=== PATIENT | female | born 1980 | race Caucasian/White ===

== ENCOUNTER 2025-03-19 19:27 | Inpatient (IN) | payer OTHER ==
[~2025-03-19] VITALS: Ht 165.1 cm; Wt 80.1 kg
[2025-03-19 20:21] LABS: BASOPHILS ABSOLUTE AUTO 0.22 K/mm3 (0.00-0.23); BASOPHILS PERCENT AUTO 1 % (0-2); EOSINOPHILS ABSOLUTE AUTO 0.29 K/mm3 (0.00-0.68); EOSINOPHILS PERCENT AUTO 2 % (0-6); Hematocrit 31.6 % (33.0-51.0); Hemoglobin 10.9 g/dL (11.5-16.0); IMMATURE GRAN ABSOLUTE AUTO 0.13 K/mm3 (0.00-0.10); IMMATURE GRAN PERCENT AUTO 1 % (0-1); LYMPHOCYTES ABSOLUTE AUTO 1.95 K/mm3 (0.84-5.20); LYMPHOCYTES PERCENT AUTO 12 % (21-46); MONOCYTES ABSOLUTE AUTO 1.48 K/mm3 (0.16-1.47); MONOCYTES PERCENT AUTO 9 % (4-13); Mean Corpuscular HGB 33.6 pg (26.0-34.0); Mean Corpuscular HGB Conc 34.5 g/dL (31.5-36.5); Mean Corpuscular Volume 98 fL (80-100); Mean Platelet Volume 10.8 fL (9.1-12.4); NEUTROPHILS ABSOLUTE AUTO 12.17 K/mm3 (1.96-9.15); NEUTROPHILS PERCENT AUTO 75 % (41-73); Platelet Count 385 K/mm3 (150-400); RDW Coefficient Variation 16.9 % (11.7-14.2); RDW Standard Deviation 59.2 fL (35.1-46.3); Red Blood Cell Count 3.24 M/mm3 (3.80-5.20); White Blood Cell Count 16.24 K/mm3 (4.00-11.30)
[2025-03-19 20:36] LABS: International Normalized Ratio 1.9; Prothrombin Time Results 19.4 Sec (9.7-11.5)
[2025-03-19 20:49] LABS: Alanine Aminotransfer (ALT/SGP 52 U/L (12-78); Albumin, Blood 2.2 g/dL (3.4-5.0); Albumin/Globulin Ratio 0.5 (0.8-1.8); Alk Phos 225 U/L (50-136); Anion Gap 11 mmol/L (3-11); Aspartate Aminotrans (AST/SGOT 196 U/L (12-37); Bilirubin, Total 14.2 mg/dL (0.1-1.0); Blood Urea Nitrogen 24 mg/dL (8-24); Bun/Creatinine Ratio 34.1 (12.0-20.0); CO2, Blood 19 mmol/L (21-32); Calcium, Blood 8.4 mg/dL (8.5-10.1); Chloride, Blood 109 mmol/L (98-108); Globulin, Blood 4.4 g/dL (2.2-4.0); Glomerular Filtration Rate 110 (60-); Glucose, Blood 115 mg/dL (70-99); Potassium, Blood 3.4 mmol/L (3.5-5.5); Sodium, Blood 136 mmol/L (136-145); Total Protein, Blood 6.6 g/dL (6.4-8.2)
[2025-03-19 22:59] LABS: Source, Urine Clean Catch
[2025-03-19 23:01] LABS: Blood, Urine 2+ (Neg); Glucose Qualitative, Urine Neg (Neg); Ketones, Urine Neg (Neg); Leukocyte Esterase, Urine 1+ (Neg); Nitrite, Urine Neg (Neg); Protein, Urine 3+ (Neg); Specific Gravity, Urine 1.015 (1.003-1.022); Urobilinogen, Urine 3+ (Normal); pH, Urine 6.5 (5.0-8.0)
[2025-03-19 23:03] LABS: Appearance, Urine Hazy (Clear); Bilirubin, Urine 3+ (Neg); Color, Urine Amber (P-Yellow)
[2025-03-19 23:09] LABS: Amorphous Light (0-Heavy); Bacteria Mod /hpf; Granular Casts 0-2 /lpf (0); Red Blood Cells, Urine 0-2 /hpf (0-2); Squamous Epithelial Cells Rare /hpf (Few); Transitional Epithelial Cells Few /hpf (0-Rare); WBC Cast 0-2 /lpf (0)
[2025-03-19 23:10] LABS: Other Crystals Few /hpf
[2025-03-19] MEDS ORDERED: Ampicillin Sod/Sulbactam Sod 3 GM in NS 100 ML IV ONE (23:30)
[2025-03-19] MEDS ORDERED: Ketorolac Tromethamine 30mg Vial IV ONE (23:30)
[2025-03-19] MEDS ORDERED: NS 1,000 ML IV SCH (23:35)
[2025-03-20] MEDS ORDERED: NS 1,000 ML IV SCH ×3 (01:05→08:00)
[2025-03-20] MEDS ORDERED: Ondansetron HCl 2 MG / ML 2ML Vial IV PRN ×2 (01:05→01:20)
[2025-03-20] MEDS ORDERED: Albumin (Human) 25gm/100ml 100 ML IV ONE (01:45)
[2025-03-20] MEDS ORDERED: Potassium Chloride 40 MEQ in NS 250 ML IV ONE (01:45)
[2025-03-20 02:08] LABS: Ethanol (Alcohol), Blood, Med <3 mg/dL
[2025-03-20] MEDS ORDERED: Thiamine HCl 100 MG in NS 50 ML IV SCH (02:17)
[2025-03-20 03:00] VITALS: BP 103/55
[2025-03-20] MEDS ORDERED: MethylPREDNISolone Sod Succ 40 MG VIAL IV SCH (03:00)
[2025-03-20] MEDS ORDERED: NS 250 ML IV PRN (03:35)
[2025-03-20 05:01] LABS: EOSINOPHILS ABSOLUTE AUTO 0.19 K/mm3 (0.00-0.68); EOSINOPHILS PERCENT AUTO 2 % (0-6); IMMATURE GRAN ABSOLUTE AUTO 0.07 K/mm3 (0.00-0.10); IMMATURE GRAN PERCENT AUTO 1 % (0-1); Red Blood Cell Count 2.55 M/mm3 (3.80-5.20)
[2025-03-20 05:06] LABS: BASOPHILS ABSOLUTE AUTO 0.16 K/mm3 (0.00-0.23); BASOPHILS PERCENT AUTO 2 % (0-2); Hematocrit 25.2 % (33.0-51.0); Hemoglobin 8.6 g/dL (11.5-16.0); LYMPHOCYTES ABSOLUTE AUTO 1.24 K/mm3 (0.84-5.20); LYMPHOCYTES PERCENT AUTO 12 % (21-46); MONOCYTES ABSOLUTE AUTO 1.02 K/mm3 (0.16-1.47); MONOCYTES PERCENT AUTO 10 % (4-13); Mean Corpuscular HGB 33.7 pg (26.0-34.0); Mean Corpuscular HGB Conc 34.1 g/dL (31.5-36.5); Mean Corpuscular Volume 99 fL (80-100); Mean Platelet Volume 11.2 fL (9.1-12.4); NEUTROPHILS ABSOLUTE AUTO 7.45 K/mm3 (1.96-9.15); NEUTROPHILS PERCENT AUTO 74 % (41-73); Platelet Count 274 K/mm3 (150-400); RDW Coefficient Variation 17.1 % (11.7-14.2); RDW Standard Deviation 61.1 fL (35.1-46.3); White Blood Cell Count 10.13 K/mm3 (4.00-11.30)
[2025-03-20 05:30] LABS: Albumin, Blood 2.4 g/dL (3.4-5.0); Albumin/Globulin Ratio 0.7 (0.8-1.8); Bilirubin, Total 12.4 mg/dL (0.1-1.0); Bun/Creatinine Ratio 34.9 (12.0-20.0); Creatinine, Blood 0.69 mg/dL (0.40-1.00); Globulin, Blood 3.5 g/dL (2.2-4.0); Potassium, Blood 3.2 mmol/L (3.5-5.5); Total Protein, Blood 5.9 g/dL (6.4-8.2)
--- NOTE | 2025-03-20 05:36 | NUR ---
44 Y/O FEMALE ADMITTED TO ROOM 364 FROM ED. PATIENT COMES IN WITH ABDOMINAL BLOATING. PATIENT IS JAUNDICED WITH ABD DISTENTION SHE STATES IS MORE THAN HER NORMAL. NPO, ON ROOM AIR. ABLE TO AMBULATE WITH MINAMAL ASSIST TO BATHROOM. URINE IS YELLOW. VOIDING IN FREQUENT SMALL AMOUNTS. NO COMPLAINTS OF PAIN. IVF INFUSING. TELE SR SKIN IS INTACT. ABLE TO MAKE NEEDS KNOWN. CONTINUE CARE
[2025-03-20] MEDS ORDERED: Ampicillin Sod/Sulbactam Sod 3 GM in NS 100 ML IV SCH (06:00)
[2025-03-20] MEDS ORDERED: MetroNIDAZOLE 500MG/NS 100 ml 100 ML IV SCH (08:09)
[2025-03-20 08:15] VITALS: BP 98/61
[2025-03-20] MEDS ORDERED: Acetaminophen 325 MG TABLET PO PRN (08:35)
[2025-03-20] MEDS ORDERED: OxyCODONE HCL 5 MG TAB PO PRN (08:40)
[2025-03-20] MEDS ORDERED: TraZODone HCl 50 MG Tab PO PRN (08:40)
[2025-03-20] MEDS ORDERED: CefTRIAXone Sodium 2,000 MG in NS 100 ML IV SCH (09:00)
[2025-03-20] MEDS ORDERED: Folic Acid 1 MG in NS 50 ML IV SCH (09:00)
[2025-03-20] MEDS ORDERED: Docusate Sodium/Senna 1 Tab PO SCH (09:00)
[2025-03-20] MEDS ORDERED: Famotidine 20 MG Tab PO SCH (09:00)
[2025-03-20] MEDS ORDERED: Polyethylene Glycol 3350 17 gm PO SCH (09:00)
[2025-03-20] MEDS ORDERED: Potassium Chloride 20 MEQ TabCR PO ONE (09:00)
[2025-03-20 12:03] VITALS: BP 99/59
[2025-03-20 16:47] VITALS: BP 96/67
[2025-03-20 20:10] VITALS: BP 105/62
[2025-03-21 00:05] VITALS: BP 121/64
--- NOTE | 2025-03-21 04:09 | NUR ---
SHIFT SUMMARY ADMITTED FOR HEPATITIS. FULL CODE. IV ANTIB RX ARE SCHEDULED. SHE HAS BEEN NPO FOR AN IMAGING STUDY TO BE PERFORMED TODAY. IV FLUIDS HAVE COMPLETED. TELEMETRY: NSR @ 79 BPM. ON RA. A&O X4. INDEPENDENT IN ROOM. HX OF CIRRHOSIS. DR. SWEENEY IS SURGICAL CONSULT. HX: ETOH - QUIT 1 MONTH AGO.
[2025-03-21 04:50] LABS: BASOPHILS ABSOLUTE AUTO 0.09 K/mm3 (0.00-0.23); BASOPHILS PERCENT AUTO 1 % (0-2); EOSINOPHILS ABSOLUTE AUTO 0.15 K/mm3 (0.00-0.68); EOSINOPHILS PERCENT AUTO 1 % (0-6); Hematocrit 25.6 % (33.0-51.0); Hemoglobin 8.9 g/dL (11.5-16.0); IMMATURE GRAN ABSOLUTE AUTO 0.14 K/mm3 (0.00-0.10); IMMATURE GRAN PERCENT AUTO 1 % (0-1); LYMPHOCYTES PERCENT AUTO 11 % (21-46); MONOCYTES ABSOLUTE AUTO 1.36 K/mm3 (0.16-1.47); MONOCYTES PERCENT AUTO 9 % (4-13); Mean Corpuscular HGB 34.2 pg (26.0-34.0); Mean Corpuscular HGB Conc 34.8 g/dL (31.5-36.5); Mean Corpuscular Volume 99 fL (80-100); Mean Platelet Volume 11.1 fL (9.1-12.4); NEUTROPHILS ABSOLUTE AUTO 11.55 K/mm3 (1.96-9.15); NEUTROPHILS PERCENT AUTO 78 % (41-73); Platelet Count 261 K/mm3 (150-400); RDW Coefficient Variation 16.7 % (11.7-14.2); RDW Standard Deviation 59.1 fL (35.1-46.3); White Blood Cell Count 14.89 K/mm3 (4.00-11.30)
[2025-03-21 04:52] VITALS: BP 104/68
[2025-03-21 05:17] LABS: Albumin, Blood 2.1 g/dL (3.4-5.0); Albumin/Globulin Ratio 0.6 (0.8-1.8); Bilirubin, Total 11.2 mg/dL (0.1-1.0); Bun/Creatinine Ratio 30.8 (12.0-20.0); Calcium, Blood 7.8 mg/dL (8.5-10.1); Creatinine, Blood 0.65 mg/dL (0.40-1.00); Globulin, Blood 3.8 g/dL (2.2-4.0); Magnesium, Blood 2.2 mg/dL (1.6-2.4); Potassium, Blood 3.7 mmol/L (3.5-5.5); Total Protein, Blood 5.9 g/dL (6.4-8.2)
[2025-03-21 07:33] VITALS: BP 99/63
--- NOTE | 2025-03-21 08:54 | NUR ---
0850- ORDER ACKNOWLEDGED FOR SWEENEY CONSULT. MD SWEENEY AWARE. MD SWEENEY HAD ALREADY ORDERED MRCP FOR TODAY.
[2025-03-21] MEDS ORDERED: Potassium Chloride 20 MEQ TabCR PO ONE (09:00)
[2025-03-21] MEDS ORDERED: Furosemide 10 MG/ML 4ML Vial IV ONE (09:00)
[2025-03-21 10:21] LABS: Bilirubin, Direct 9.8 mg/dL (0.0-0.3); Bilirubin, Indirect 2.6 mg/dL (0.1-0.7); Bilirubin, Total 12.4 mg/dL (0.1-1.0)
[2025-03-21 15:38] VITALS: BP 111/64
--- NOTE | 2025-03-21 18:26 | NUR ---
SUMMARY- PT AAOX4. NO COMPLAINTS OF PAIN THIS SHIFT. PT ON RA. INDIPENDENT IN ROOM. NO ACUTE EVENTS THIS SHIFT. PT IS PLEASANT AND COOPERTIVE. GOOD APPETITE AND TOLERATING CLEARS TONIGHT.
[2025-03-21 18:43] LABS: HEPATITIS A ANTIBODY, IGM Negative (Negative); HEPATITIS B CORE ANTIBODY, IGM Negative (Negative); HEPATITIS B SURFACE ANTIGEN Negative (Negative); HEPATITIS C AB CIA INTERP Negative (Negative); HEPATITIS C ANTIBODY CIA INDEX 0.31 IV
[2025-03-21 19:49] VITALS: BP 108/67
[2025-03-22 04:00] LABS: FACTIN SMOOTH MUSCLE,IGG ELISA 11 Units (0-19); MITOCHONDRIAL (M2) AB,IGG 7.8 Units (0.0-24.9)
[2025-03-22 04:26] VITALS: BP 112/60
[2025-03-22 04:55] LABS: BASOPHILS ABSOLUTE AUTO 0.12 K/mm3 (0.00-0.23); BASOPHILS PERCENT AUTO 1 % (0-2); EOSINOPHILS ABSOLUTE AUTO 0.29 K/mm3 (0.00-0.68); EOSINOPHILS PERCENT AUTO 3 % (0-6); Hematocrit 26.1 % (33.0-51.0); Hemoglobin 8.9 g/dL (11.5-16.0); IMMATURE GRAN ABSOLUTE AUTO 0.06 K/mm3 (0.00-0.10); IMMATURE GRAN PERCENT AUTO 1 % (0-1); LYMPHOCYTES ABSOLUTE AUTO 1.43 K/mm3 (0.84-5.20); LYMPHOCYTES PERCENT AUTO 14 % (21-46); MONOCYTES PERCENT AUTO 11 % (4-13); Mean Corpuscular HGB 33.3 pg (26.0-34.0); Mean Corpuscular HGB Conc 34.1 g/dL (31.5-36.5); Mean Corpuscular Volume 98 fL (80-100); NEUTROPHILS ABSOLUTE AUTO 7.24 K/mm3 (1.96-9.15); NEUTROPHILS PERCENT AUTO 71 % (41-73); Platelet Count 230 K/mm3 (150-400); RDW Coefficient Variation 16.6 % (11.7-14.2); RDW Standard Deviation 58.4 fL (35.1-46.3); Red Blood Cell Count 2.67 M/mm3 (3.80-5.20); White Blood Cell Count 10.24 K/mm3 (4.00-11.30)
--- NOTE | 2025-03-22 05:13 | NUR ---
SHIFT SUMMARY ADMITTED FOR HEPATITIS. FULL CODE. IV ANTIB RX ARE SCHEDULED. HIDA SCAN WAS CLEAR. SURGICAL CONSULT IS DR. SWEENEY. SHE IS A&O X4, INDEPENDENT, ON RA. HX: CIRRHOSIS, ETOH - QUIT 1 MONTH AGO.
[2025-03-22 05:21] LABS: Albumin, Blood 2.1 g/dL (3.4-5.0); Albumin/Globulin Ratio 0.6 (0.8-1.8); Bilirubin, Total 10.4 mg/dL (0.1-1.0); Calcium, Blood 7.9 mg/dL (8.5-10.1); Creatinine, Blood 0.52 mg/dL (0.40-1.00); Globulin, Blood 3.7 g/dL (2.2-4.0); Magnesium, Blood 1.7 mg/dL (1.6-2.4); Phosphorus, Blood 1.7 mg/dL (2.5-4.9); Potassium, Blood 3.5 mmol/L (3.5-5.5); Total Protein, Blood 5.8 g/dL (6.4-8.2)
[2025-03-22 07:35] VITALS: BP 116/60
--- NOTE | 2025-03-22 11:16 | NUR ---
RN NOTE MS ANGELES TOLERATED REGULAR DIET FOR BREAKFAST THIS MORNING. ABDOMEN IS SOFT AND NON TENDER. SHE IS JAUNDICED AND HAS BROWN URINE. UP INDEPENDENTLY TO THE BATHROOM WITH STEADY GAIT. SHE SAID FEELS READY TO GO HOME TODAY.
[2025-03-22] MEDS ORDERED: CEPH500 PO (12:30)
[2025-03-22] MEDS ORDERED: B-12500 MC2 PO (12:30)
[2025-03-22] MEDS ORDERED: FOLI1 PO (12:32)
[2025-03-22] MEDS ORDERED: FURO20 PO (12:33)
[2025-03-22] MEDS ORDERED: RIFA550T2 PO (12:34)
[2025-03-22] MEDS ORDERED: LACT10SY PO (12:34)
[2025-03-22 13:41] VITALS: BP 114/73
--- NOTE | 2025-03-22 14:28 | NUR ---
DISCHARGE NOTE MS ANGELES VERBALISED UNDERSTANDING OF WRITTEN AND VERBAL DISCHARGE INSTRUCTIONS. SHE AMBULATED FROM MEDICAL UNIT AT 1410 WITH HER FAMILY. SHE HAD NO NEW QUESTIONS OR CONCERNS AT TIME OF DISCHARGE.
[2025-03-22 22:18] LABS: CERULOPLASMIN 27 mg/dL (16-45)
== END 2025-03-22 14:21 | disposition home or self-care (01) | DRG 433 ==
LOC: ER 19:27 → MEDS 03-20 00:46 → ERHOLD 03-20 00:46 → ER 03-20 01:05 → MEDS 03-20 03:03
PROVIDERS: Hospitalist; Student in an Organized Health Care Education/Training Program; Surgery; ADMIT Internal Medicine
DX: K70.11 Alcoholic hepatitis with ascites (principal); K80.00 Calculus of gallbladder with acute cholecystitis without obstruction; Z90.710 Acquired absence of both cervix and uterus; E88.09 Other disorders of plasma-protein metabolism, not elsewhere classified; K52.9 Noninfective gastroenteritis and colitis, unspecified; K74.60 Unspecified cirrhosis of liver; R16.2 Hepatomegaly with splenomegaly, not elsewhere classified; K76.0 Fatty (change of) liver, not elsewhere classified
CPT/HCPCS: 36415; 74177; 74181; 76705; 78226; 80053; 80074; 80320; 81001; 81025; 82140; 82247; 82248; 82390; 82728; 83605; 83690; 83735; 84100; 85025; 85610; 85730; 86015; 86381; 86850; 87040; 87086; A9270; A9537; J0295; J0696; J1885; J1940; J2919; J3411; J3480; J7030; J7050; P9047; Q9967

== ENCOUNTER 2025-09-06 12:29 | Day surgery (SDC) | payer OTHER ==
[~2025-09-06] VITALS: Ht 160 cm; Wt 74.8 kg
[~2025-09-06 12:29] MED LIST: B-12500 MC2 PO; CEPH500 PO; FOLI1 PO; FURO20 PO; LACT10SY PO; RIFA550T2 PO
[2025-09-06] MEDS ORDERED: SPIR25 (12:58)
[2025-09-06] MEDS ORDERED: Lidocaine HCl 4% 5 ML SDA ONE (14:43)
[2025-09-06 16:13] VITALS: BP 134/79
== END 2025-09-06 16:11 | disposition home or self-care (01) ==
LOC: ORSCSDS 12:29
PROVIDERS: Internal Medicine Gastroenterology
PROC: 0DB78ZX Excision of Stomach, Pylorus, Via Natural or Artificial Opening Endoscopic, Diagnostic (ICD-10-PCS; principal; 2025-09-06 14:00)
PROC: 0DJD8ZZ Inspection of Lower Intestinal Tract, Via Natural or Artificial Opening Endoscopic (ICD-10-PCS; principal; 2025-09-06 14:00)
DX: R93.3 Abnormal findings on diagnostic imaging of other parts of digestive tract (principal); Z13.810 Encounter for screening for upper gastrointestinal disorder; K29.70 Gastritis, unspecified, without bleeding; K74.60 Unspecified cirrhosis of liver; Z79.899 Other long term (current) drug therapy
CPT/HCPCS: 88305; 88342; J2003; J2704; J7120